=== PATIENT | female | born 1970 ===

== ENCOUNTER 2021-05-03 06:33 | Inpatient (IN) ==
[~2021-05-03 06:33] MED LIST: Buffered Lidocaine 1% SYRIN 1 ml INTRADERM ONE; Lactated Ringers 1000 ml BAG 1,000 ML IV SCH
[2021-05-03] MEDS ORDERED: fentaNYL 100 mcg/2 ml 50 MCG/ML VIAL ONE (06:54)
[2021-05-03] MEDS ORDERED: Propofol 10 MG/ML 20 ML BTL ONE (06:54)
[2021-05-03] MEDS ORDERED: Midazolam 2 mg/2 ml VIAL 1 mg/ml 2 ml VIAL (2 mg) ONE ×2 (06:54→07:36)
[2021-05-03] MEDS ORDERED: Lidocaine 2% PF 5 ML VIAL ONE ×2 (06:54→07:36)
[2021-05-03] MEDS ORDERED: Ondansetron 4 mg VIAL 2 MG/ML 2 ml VIAL ONE (06:54)
[2021-05-03] MEDS ORDERED: Dexamethasone IV 4 MG/ML VIAL 1 ml VIAL ONE (06:54)
[2021-05-03] MEDS ORDERED: Buffered Lidocaine 1% SYRIN 1 ml INTRADERM ONE (06:56)
[2021-05-03] MEDS ORDERED: Ropivacaine 5 MG/ML 20 ML VIAL 0.5% (100 MG) ONE (07:14)
[2021-05-03] MEDS ORDERED: ceFAZolin 2 GM in NS PREMIX 2 GM/100 ML BAG IVPB ONE (07:24)
[2021-05-03] MEDS ORDERED: Dexmedetomidine 200 mcg/2 ml 2 ml VIAL (200 mcg) ONE (07:36)
[2021-05-03] MEDS ORDERED: ROPIVACAINE 5 MG/ML 30 ML BTL (0.5%) ONE (07:36)
[2021-05-03] MEDS ORDERED: Phenylephrine IV 10 MG/ML 1 ml VIAL ONE ×2 (08:20→08:21)
[2021-05-03] MEDS ORDERED: Bupivacaine 0.5% SDV PF 30ML VIAL ONE (08:35)
[2021-05-03] MEDS ORDERED: Ondansetron 4 mg VIAL 2 MG/ML 2 ml VIAL IV PRN (08:49)
[2021-05-03] MEDS ORDERED: Ondansetron ODT 4 mg TAB 4 MG TAB PO PRN (08:49)
[2021-05-03] MEDS ORDERED: diPHENhydraMINE IV 50 MG/ML 1 ml VIAL (BENADRYL) IV PRN (08:49)
[2021-05-03] MEDS ORDERED: Magnesium Hydroxide LIQ 30 ML UDC PO PRN (08:49)
[2021-05-03] MEDS ORDERED: Lactulose 30 ml UDC PO PRN (08:49)
[2021-05-03] MEDS ORDERED: Morphine 2 MG/ML SYRINGE IV PRN (08:49)
[2021-05-03] MEDS ORDERED: diPHENhydraMINE 25 mg TAB PO PRN (08:49)
[2021-05-03] MEDS ORDERED: Acetaminophen IV 1 GM/100ML 100 ML IV ONE (10:35)
[2021-05-03] MEDS ORDERED: fentaNYL 100 mcg/2 ml 50 MCG/ML VIAL IV PRN (10:36)
[2021-05-03] MEDS ORDERED: DiMENhydriNATE IV 50 mg/ml 1 ml VIAL IV PUSH PRN (10:36)
[2021-05-03] MEDS ORDERED: Naloxone 0.4 mg VIAL 0.4 mg/ml 1 ml VIAL IV PRN (10:36)
[2021-05-03] MEDS: Lactated Ringers 1000 ml BAG 1,000 ML IV SCH (14:11)
[2021-05-03] MEDS: ceFAZolin 1 GM ADVAN 1 GM in NS 0.9% 50 ML 50 ML IVPB SCH (16:48)
[2021-05-03] MEDS: Vitamin THERAPEUTIC TAB PO SCH (17:18)
[2021-05-03] MEDS: Magnesium Hydroxide LIQ 30 ML UDC PO SCH ×2 (17:18→21:55)
[2021-05-04] MEDS: Lactated Ringers 1000 ml BAG 1,000 ML IV SCH (00:23)
[2021-05-04] MEDS: ceFAZolin 1 GM ADVAN 1 GM in NS 0.9% 50 ML 50 ML IVPB SCH ×2 (01:45→08:12)
[2021-05-04 06:54] LABS: Hematocrit 28 % (35-47); Hemoglobin 9.9 g/dL (12.0-16.0); Mean Platelet Volume 7.5 fL (7.4-10.4); Platelet Count 226 10^3/uL (150-450)
[2021-05-04 07:13] LABS: Calcium 8.6 mg/dL (8.6-10.3); Potassium 3.9 mmol/L (3.5-5.0)
[2021-05-04] MEDS: Magnesium Hydroxide LIQ 30 ML UDC PO SCH (08:12)
[2021-05-04] MEDS: Vitamin THERAPEUTIC TAB PO SCH (08:13)
[2021-05-04 11:12] VITALS: BP 94/64
== END 2021-05-04 12:00 | disposition home or self-care (01) | DRG 302 ==
LOC: AA 06:33 → INTOOBSV 06:33 → SSU 08:49
PROVIDERS: ADMIT Orthopaedic Surgery Adult Reconstructive Orthopaedic Surgery; ATTEND Orthopaedic Surgery Adult Reconstructive Orthopaedic Surgery